=== PATIENT | male | born 1955 | race Caucasian/White ===

== ENCOUNTER 2018-06-26 06:47 | Outpatient (CLI) | payer OTHER ==
[~2018-06-26 06:47] MED LIST: ALDACTONE25 MG PO; Avapro PO; CARAFATE1 G PO; CARDURA8 MG PO; CARdura 4MG TABLET PO; COREG CR10 MG PO; Carafate Susp 1G/10ML BLIST.PACK PO; Coreg PO; DIGOXIN0.125 MG/2 PO; JANUMET 50-1,1 UDTAB PO; KEFLEX250 MG PO; LASIX20 MG PO; METFORMIN HYDRO25 GM MC; MOBIC15 MG PO; NORVASC 10 MG TAB PO; OMEPRAZOLE40 MG PO; PROTONIX40 MG PO; STRIVERDI PO; SURFAK240 M1 PO; SYMBICORT 16010.2 GM IH; ULTRACET PO; [UNRECOGNIZED DRUG - OTHER] MC
== END 2018-06-26 07:05 | disposition home or self-care (01) ==
LOC: RX STUDY 06:47
DX: R10.11 Right upper quadrant pain (principal)

== ENCOUNTER 2018-12-31 07:39 | Inpatient (IN) | payer OTHER ==
[~2018-12-31] VITALS: Ht 182.9 cm; Wt 104.3 kg
--- NOTE | 2018-12-31 08:00 | NUR ---
SE RECIBE PTE EL CUAL REFIERE PRESENTAR FALTA DE AIRE A LA HORA DE DORMIR (POSICION FLAT) Y MOLESTIA AL RESPIRAR. PTE REFIERE PADECER DE ASTHMA Y SER DIAGNOSTICADO POR LA DR. ARECHIGA POR COPD.
--- NOTE | 2018-12-31 09:18 | NUR ---
EVALUADO POR DRA. MOORE QUIEN ORDENA TRATAMIENTO MEDICO DEL CUAL MS.DIANDRA ORIENTA PACIENTE,EL CUAL REFIERE COMPRENDER. COLECTA MUESTRAS DE LABORATORIOS Y ENVIA PARA ANALISIS. NOTIFICA ABGS A PERSONAL D ETURNO. SE NOTIFICA XRAYS A PERSONAL DE TURNO.
--- NOTE | 2018-12-31 15:23 | NUR ---
SE RECIBE PTE DEL TURNO ANTERIOR, ALERTA Y ORIENTADO X 3 EFSERAS, EN CAMA NIVEL MAS BAJO, ROQUE DE IDNETIFICACION Y BARANDAS LEEVADAS POR PRECAUCION. SE OBSERVA CON BUEN PATRON RESPIRATORIO Y PIEL TIBIA AL TACTO. AL MOMENTO SE ENCUENTRAN REALIZANDO ECHO.
--- NOTE | 2018-12-31 23:26 | NUR ---
PTE ALERTA Y ORIENTADO X 3 ESFERAS EN CAMA CON BARANDAS ELEVADAS,EN COMPANIA DE FAMILIAR,AREA DE VENOPUNCION PATENTE Y SHELBY DE EDEMA,PENDIENTE A EVALUACION DE DR JHOAN MASON.
== END 2019-01-03 19:32 | disposition home or self-care (01) | DRG 308 ==
LOC: ER 07:39 → MEDJ 01-01 00:49
PROVIDERS: ADMIT Internal Medicine Cardiovascular Disease
DX: I48.0 Paroxysmal atrial fibrillation (principal); I50.43 Acute on chronic combined systolic (congestive) and diastolic (congestive) heart failure; I11.0 Hypertensive heart disease with heart failure; I08.0 Rheumatic disorders of both mitral and aortic valves; E11.9 Type 2 diabetes mellitus without complications; Z79.01 Long term (current) use of anticoagulants; Z79.4 Long term (current) use of insulin

== ENCOUNTER 2019-02-09 07:41 | Emergency (ER) | payer OTHER ==
[~2019-02-09] VITALS: Ht 182.9 cm; Wt 112.5 kg
[2019-02-09] MEDS ORDERED: AMIODARONE HCL200 MG PO (08:21)
[2019-02-09] MEDS ORDERED: LASIX40 MG PO (08:21)
[2019-02-09] MEDS ORDERED: XARELTO20 MG PO (08:21)
[2019-02-09] MEDS ORDERED: ATACAND32 MG PO (08:22)
== END 2019-02-09 21:15 | disposition home or self-care (01) ==
LOC: ER 07:41
DX: K76.89 Other specified diseases of liver (principal); R18.8 Other ascites; R14.0 Abdominal distension (gaseous)